=== PATIENT | female | born 1965 | race Caucasian/White ===

== ENCOUNTER → 2016-07-15 | Outpatient (CLI) | payer OTHER ==
--- NOTE | 2016-07-15 17:34 | DX ---
DEXA Bone Mineral Densitometry Clinical Indications: Family history of osteoporosis. Screening. Comparison: None available. Technique: Bone Mineral Densitometry (BMD) by Dual Energy X-Ray Absorptiometry (DEXA) was performed utilizing the [employer] scanner. The lumbar spine was evaluated in the AP projection. The bilat eral hips and forearm were evaluated in the AP projection. Vertebral fracture assessment was also pe rformed. AP Lumbar Spine: The L1, L2, L3 and L4 vertebral bodies were evaluated. BMD: 0.981 gm/cm2 T-score: -1.7 SD Z-score: -0.8 SD AP left Hip: Total BMD: 0.665 gm/cm2 T-score: -2.7 SD Z-score: -1.9 SD AP right Hip: Total BMD: 0.674 gm/cm2 T-score: -2.6 SD Z-score: -1.8 SD AP left Forearm, 06/28: BMD: 0.725 gm/cm2 T-score: -1.7 SD Z-score: -1.5 SD Vertebral Fracture Assessment: No significant fracture deformity. Conclusion: Considering the lowest measured site, the patient is osteoporotic. The ten year risk for any major osteoporotic fracture is 21.6% and for a hip fracture is 2.6%. Consider excluding secondary metabolic causes of bone loss (reported to be present in as many as 30% of patients with normal Z scores). Laboratory evaluation might include hydroxy vitamin D3 level, TSH, PTH, calcium, 24-hour urine calcium, phosphorous, albumin, creatinine, alkaline phosphatase, serum e lectrophoresis (SPEP or UPEP), anti-tissue transglutaminase antibody levels (celiac disease) and CBC . If secondary causes are excluded, then consider initiating treatment with a bisphosphonate (such a s Fosamax, Actonel or Boniva). If the patient is unable to use an oral bisphosphonate, another agent such as IV bisphosphonates (Boniva or Reclast), teriparatide (Forteo), or a selective estrogen recept or modulator (Evista) might be considered. Supplementing an insufficient diet to achieve total intakes of 1500 mg calcium and 800 International Units of vitamin D daily should be considered. Osteoporosis prevention and treatment begins by modify ing risk factors. The patient should be encouraged to participate in a regular exercise program that includes weightbearing and muscle strengthening regimens, as is clinically appropriate. Recommend follow-up DEXA in one year to assess the efficacy of pharmacologic intervention and/or traci ection of appropriate secondary cause.
== END ==
LOC: FIMAGING 14:59
PROVIDERS: ATTEND Internal Medicine
DX: Z13.820 Encounter for screening for osteoporosis (principal); M81.0 Age-related osteoporosis without current pathological fracture; Z82.62 Family history of osteoporosis

== ENCOUNTER → 2017-01-04 | Outpatient (CLI) | payer OTHER | LOC: FIMAGING 08:22 | PROVIDERS: ATTEND Internal Medicine | DX: R10.2 Pelvic and perineal pain (principal); Z90.710 Acquired absence of both cervix and uterus ==

== ENCOUNTER → 2018-01-09 | Outpatient (CLI) | payer OTHER | LOC: FIMAGING 07:49 | PROVIDERS: ATTEND Internal Medicine | DX: Z12.31 Encounter for screening mammogram for malignant neoplasm of breast (principal) ==